=== PATIENT | male | born 1980 | race Hispanic/Latino ===

== ENCOUNTER 2019-06-30 09:26 | Inpatient (IN) | payer BC ==
[2019-06-30 10:01] LABS: #Basophils 0.1 thou/uL (0.0-0.2); #Eosinphils 0.1 thou/uL (0.0-0.7); #Lymphocytes 2.5 thou/uL (1.20-3.40); #Monocytes 0.9 thou/uL (0.11-0.59); #Neutrophils 7.3 thou/uL (1.40-6.50); %Basophils 0.6 % (0.0-1.0); %Eosinophils 1.2 % (0.0-10.0); %Lymphocytes 22.6 % (21.0-51.0); %Monocytes 8.3 % (0.0-10.0); %Neutrophils 67.3 % (42.0-75.0); Hemoglobin 14.6 g/dL (14.0-18.0); Mean Corpuscular HGB CONC 34.4 g/dL (32.0-36.0); Mean Corpuscular Hemoglobin 27.5 pg (27.0-31.0); Mean Corpuscular Volume 79.9 fL (78.0-98.0); Platelet Count 326 thou/uL (130-400); RBC Distribution Width 12.8 % (11.5-14.5); Red Blood Cell (RBC) Count 5.31 mill/uL (4.70-6.10); White Blood Cell (WBC) Count 10.8 thou/uL (4.8-10.8)
[2019-06-30 10:27] LABS: ALT (SGPT) 44 U/L (8-55); AST (SGOT) 31 U/L (5-34); Albumin 4.2 g/dL (3.5-5.0); Alkaline Phosphatase 170 U/L (40-150); Anion Gap 13 mmol/L (10-20); BUN (Urea Nitrogen) 14 mg/dL (8.9-20.6); Bilirubin, Total 0.7 mg/dL (0.2-1.2); CK (CPK) 42 U/L (30-200); Calc. Creatinine Clearance 0 mL/min (70-130); Calcium 9.9 mg/dL (7.8-10.44); Carbon Dioxide 24 mmol/L (22-29); Chloride 103 mmol/L (98-107); Estimated GFR-MDRD Greater than 90; Globulin 3.5 g/dL (2.4-3.5); Glucose 104 mg/dL (70-105); Lipase 90 U/L (8-78); Potassium 3.7 mmol/L (3.5-5.1); Protein, Total 7.7 g/dL (6.0-8.3); Sodium 136 mmol/L (136-145)
[2019-06-30] MEDS ORDERED: Ondansetron PF 4 MG/2 ML Vial ONE (10:37)
[2019-06-30] MEDS ORDERED: Furosemide 40 MG/4 ML VIAL ONE (11:09)
[2019-06-30] MEDS ORDERED: Metoprolol Tartrate 5 MG/5 ML VIAL ONE (11:09)
--- NOTE | 2019-06-30 11:10 | CT ---
EXAM: CTA of the chest HISTORY: Tachycardia for one week with cough COMPARISON: None TECHNIQUE: Multiple contiguous axial images were obtained a CTA of the chest with contrast per pulmon cathie embolism protocol. 3-D oblique MIP reformats and direct coronal reformats were performed. FINDINGS: HEART: Normal in size without focal cardiac abnormality. PULMONARY ARTERIES: Normal in caliber without filling defects to suggest pulmonary emboli. MEDIASTINUM: No hilar or mediastinal lymphadenopathy. LUNGS: No focal infiltrates or masses. PLEURAL SPACE: No pleural effusion or pneumothorax. CHEST WALL SOFT TISSUES: Unremarkable VISUALIZED OSSEOUS STRUCTURES: Unremarkable VISUALIZED SUBDIAPHRAGMATIC STRUCTURES: Unremarkable IMPRESSION: No evidence of pulmonary thromboembolism
[2019-06-30 11:34] LABS: Bilirubin Negative (Negative); Blood, Urine Negative (Negative); Clarity Clear (Clear); Glucose, Urine (Dipstick) Normal (Negative); Leukocyte Negative Leu/uL (Negative); Nitrite Negative (Negative); Protein, Urine (Dipstick) 20 mg/dL (Neg-Trace); Urobilinogen Normal mg/dL (Less than 2)
[2019-06-30] MEDS ORDERED: Dexamethasone 10 MG/ML VIAL ONE (12:13)
[2019-06-30] MEDS ORDERED: ISOVUE-370 76%-LOCM 1 ML ONE (13:01)
[2019-06-30 14:26] VITALS: BMI 17.8
[2019-06-30] MEDS ORDERED: Acetaminophen 500 MG TAB PO PRN (14:52)
[2019-06-30] MEDS ORDERED: Ondansetron PF 4 MG/2 ML Vial IVP PRN (14:52)
[2019-06-30] MEDS ORDERED: Ondansetron ODT 4 MG TAB PO PRN (14:52)
--- NOTE | 2019-06-30 17:14 | ULT ---
Exam: Thyroid ultrasound HISTORY: Thyroid storm. Goiter. COMPARISON: 03/21/2018 FINDINGS: Thyroid isthmus: 1.0 cm Right thyroid lobe 3.2 x 5.6 x 3.5 cm Left thyroid lobe 3.1 x 5.7 x 3.1 cm. Note, the entire thyroid gland cannot be measured due to the overall size and the thyroid gland is li melanie larger than measured. There is diffuse heterogeneity without solid, mixed or cystic lesions IMPRESSION: Markedly thyromegaly. Stable heterogeneous echotexture of the thyroid gland
[2019-06-30] MEDS: Propylthiouracil 50 MG TAB PO SCH ×2 (17:26→20:17)
[2019-06-30] MEDS: Ascorbic Acid 500 mg Chewable Tablet PO SCH (20:17)
[2019-06-30] MEDS: Famotidine 20 MG TAB PO SCH (20:17)
[2019-06-30] MEDS: POTASSIUM 99 MG PO SCH (20:20)
--- NOTE | 2019-06-30 21:54 | HP ---
PRIMARY CARE PROVIDER: Jannette Quesada DO CHIEF COMPLAINT: Palpitations and general weakness. HISTORY OF PRESENT ILLNESS: This is a 38-year-old male, who presents to [facility] Emergency Department complaining of persistent palpitations, general weakness, cough, and shortness of breath over the last 1 week. The patient states the symptoms have been progressive and noticeable, limiting his activity level at work. The patient denied any recent travel history, trauma, injury, documented fever, chills, or family members with similar symptoms. The patient admits to increased cough, congestion, and feeling like his heart is "beating fast." The patient admits to history of thyroid disorder, previously treated with an unknown type of medication, not currently taking. The patient admits that he has 2 sisters with thyroid disease, who are living in [place], where he is originally from. The patient denied any swelling of his lower extremities, fever, or chills. The patient does admit to large thyroid swelling in his neck, which has been worse in the past. The patient admits to intermittent difficulty swallowing liquids and foods due to the thyroid enlargement. The patient denies any previous surgical intervention or iodine therapy. In the emergency room, the patient underwent general evaluation with initial telemetry and EKG showing sinus tachycardia with heart rates in the 150s. The patient was treated for a thyroid storm with IV metoprolol intravenous normal saline x2 L in addition to Decadron 10 mg IV push x1 dose. The patient also received Zofran and Lasix. PAST MEDICAL HISTORY: Hyperthyroidism with goiter. PAST SURGICAL HISTORY: Reviewed and negative. CURRENT MEDICATIONS: 1. Vitamin C 500 mg b.i.d. 2. Minerva root 1 capsule p.o. b.i.d. 3. Dolomite 1 capsule b.i.d. 4. Vitamin B complex 1 tablet p.o. daily. 5. Potassium 99 mg p.o. t.i.d. 6. Zinc gluconate 30 mg p.o. daily. ALLERGIES: NO KNOWN DRUG ALLERGIES. FAMILY HISTORY: Two sisters with goiter and thyroid disorders. SOCIAL HISTORY: The patient resides in [place], [place]. No current alcohol, tobacco, or illicit drug use. Functional of all activities of daily living. REVIEW OF SYSTEMS: CONSTITUTIONAL: Positive 20 pounds weight loss in the last 2 months. Ability to conduct usual activities. SKIN: Negative for rash, itching. EYES: Negative for double vision, pain. ENT/MOUTH: Negative for nose bleeding, neck stiffness, pain, tenderness. CARDIOVASCULAR: Negative for palpitations, dyspnea on exertion, orthopnea. RESPIRATORY: Negative for shortness of breath, wheezing, cough, hemoptysis, fever or night sweats. GASTROINTESTINAL: Negative for poor appetite, abdominal pain, heartburn, nausea, vomiting, constipation, or diarrhea. GENITOURINARY: Negative for urgency, frequency, dysuria, nocturia. MUSCULOSKELETAL: Negative for pain, swelling. NEUROLOGIC/PSYCHIATRIC: Negative for anxiety, depression. ALLERGY/IMMUNOLOGIC: Negative for skin rash, bleeding tendency. The rest of the review of systems, otherwise negative except as stated per HPI. PHYSICAL EXAMINATION: VITAL SIGNS: On admission, blood pressure 130/75, pulse 151, respiratory rate 21, temperature 98.6 degrees Fahrenheit, and O2 saturation 97% on room air. GENERAL APPEARANCE: This is a 38-year-old male, alert and oriented x3, pleasant, in no acute distress. HEENT: Pupils are equal, round, and reactive to light and accommodation. Extraocular muscles are intact. No scleral icterus. No conjunctival injection. No exophthalmos noted. Nares patent. OP is clear. Teeth in good repair. NECK: Supple. No cervical adenopathy. Bilateral thyromegaly noted with enlarged bilobed thyroid. Bounding pulses noted in the carotid arteries bilaterally. No nuchal rigidity. CHEST: Lungs are clear to auscultation bilaterally. CARDIOVASCULAR: S1 and S2 with tachycardia. ABDOMEN: Flat, soft, nontender, and nondistended. Bowel sounds are positive in all 4 quadrants. There is no hepatosplenomegaly. No abdominal bruits. No rebound or guarding appreciated. EXTREMITIES: Warm and dry with fair turgor. No clubbing, cyanosis, or asymmetric edema appreciated. Pulses palpable distally at the dorsalis pedis, posterior tibial, and popliteal arteries bilaterally. Capillary refill less than 2 seconds. Generalized muscle atrophy noted. NEUROLOGIC: Cranial nerves 2 through 12 are grossly intact. No focal or lateralizing signs appreciated. PERTINENT LABORATORY AND X-RAY FINDINGS: Sodium 136, potassium 3.7, chloride 103, CO2 of 24, BUN 14, creatinine 0.64, estimated GFR of greater than 90, glucose 104, lactic acid level 1.4, calcium 9.9, alkaline phosphatase 170. Troponin I negative x1. BNP 104. Lipase 90. Free T4 of 5.0. TSH less than 0.0025. CBC within normal limits. CT angiogram of the chest dated 06/30/2019, showed no evidence for pulmonary embolus. EKG dated on 06/30/2019, by my interpretation shows a sinus tachycardia with heart rates in the 140s. Attenuated R-waves noted in the precordial leads. Left axis deviation. ASSESSMENT AND PLAN: 1. Hyperthyroidism/thyroid storm. The patient will be admitted to the telemetry unit. We will continue aggressive therapy to include propranolol 40 mg p.o. q.8 hours with additional propylthiouracil 200 mg p.o. q.4 hours. Decadron initiated in the emergency room. Continue suppression therapy with propylthiouracil with plans to transition to methimazole prior to discharge. The patient likely will need chemical versus mechanical thyroidectomy in the near future. 2. Sinus tachycardia. Continue beta-jean-claude therapy as outlined previously. Titrate propranolol for clinical response. 3. Anorexia/weight loss. Secondarily to hyperthyroidism/thyroid storm. We will continue to treat as outlined in #1. 4. Goiter. Suspected Graves disease. Likely autoimmune-mediated presentation. Continue treatment as outlined in #1. 5. Prophylaxis. SCDs while in bed. Pepcid 20 mg p.o. b.i.d. CODE STATUS: Full. Surrogate medical decision maker is the patient's spouse. Job ID: [id number]
[2019-06-30] MEDS: Propranolol 40 MG TAB PO SCH (22:00)
[2019-07-01] MEDS: Propylthiouracil 50 MG TAB PO SCH ×6 (00:36→21:05)
[2019-07-01 05:27] LABS: Band 2 % (5-11); Hemoglobin 13.5 g/dL (14.0-18.0); Lymphocytes 24 % (21-51); MDiff Complete? YES; Mean Corpuscular HGB CONC 34.4 g/dL (32.0-36.0); Mean Corpuscular Hemoglobin 27.7 pg (27.0-31.0); Mean Corpuscular Volume 80.4 fL (78.0-98.0); Mean Platelet Volume 8.1 fL (7.4-10.4); Monocytes 4 % (0-10); Neutrophil 70 % (42-75); Platelet Count 278 thou/uL (130-400); Platelet Morphology Comment Appears Adequate; RBC Distribution Width 12.7 % (11.5-14.5); Red Blood Cell (RBC) Count 4.88 mill/uL (4.70-6.10); White Blood Cell (WBC) Count 5.6 thou/uL (4.8-10.8)
[2019-07-01] MEDS: Propranolol 40 MG TAB PO SCH ×3 (05:36→21:05)
[2019-07-01 05:43] LABS: ALT (SGPT) 38 U/L (8-55); AST (SGOT) 22 U/L (5-34); Albumin 3.7 g/dL (3.5-5.0); Alkaline Phosphatase 144 U/L (40-150); Anion Gap 12 mmol/L (10-20); BUN (Urea Nitrogen) 18 mg/dL (8.9-20.6); Bilirubin, Total 0.6 mg/dL (0.2-1.2); Calc. Creatinine Clearance 117 mL/min (70-130); Calcium 9.4 mg/dL (7.8-10.44); Carbon Dioxide 23 mmol/L (22-29); Chloride 105 mmol/L (98-107); Estimated GFR-MDRD Greater than 90; Globulin 3.3 g/dL (2.4-3.5); Glucose 140 mg/dL (70-105); Potassium 4.3 mmol/L (3.5-5.1); Sodium 136 mmol/L (136-145)
[2019-07-01] MEDS: ZINC GLUCONATE 30 MG PO SCH (09:17)
[2019-07-01] MEDS: Ascorbic Acid 500 mg Chewable Tablet PO SCH ×2 (09:17→21:06)
[2019-07-01] MEDS: POTASSIUM 99 MG PO SCH ×3 (09:17→21:06)
[2019-07-01] MEDS: Famotidine 20 MG TAB PO SCH ×2 (09:17→21:06)
[2019-07-01] MEDS: Stress 600 With Zinc 1 TAB PO SCH (09:36)
--- NOTE | 2019-07-01 09:45 | PDOC.HOSPP ---
- Subjective Encounter Date: 07/01/19 Encounter Time: 09:40 Subjective: f/u for thyroid storm/hyperthyroidism on PTU and Propranolol. Feels better overall. Some cough but non-productive. - Objective Vital Signs & Weight: Vital Signs (12 hours) Temp Pulse Resp BP Pulse Ox 07/01/19 08:00 97.8 F 93 16 117/57 L 98 07/01/19 04:00 97.7 F 114 H 18 112/54 L 97 Weight Weight 104 lb I&O: 06/30/19 07/01/19 07/02/19 06:59 06:59 06:59 Intake Total 617 Output Total 525 Balance 92 Result Diagrams: 07/01/19 04:48 07/01/19 04:48 Additional Labs: Microbiology 06/30/19 10:03 Venous blood - Right Arm Blood Culture - Preliminary Specimen has been received and culture in progress. No Growth to date. 06/30/19 09:45 Venous blood - Left Arm Blood Culture - Preliminary Specimen has been received and culture in progress. No Growth to date. Laboratory Tests 06/30/19 06/30/19 06/30/19 09:45 09:45 09:45 B-Natriuretic Peptide 103.7 H Free T4 Greater than 5.00 H TSH 3rd Generation Less than 0.0025 L Radiology Reviewed by me: Yes (Thyroid sono - heterogenous thyroid gland, marked thyromegaly) EKG Reviewed by me: Yes (Tele - Sinus in the 90's) Hospitalist ROS - Medication Medications: Active Medications Generic Name Dose Route Start Last Admin Trade Name Freq PRN Reason Stop Dose Admin Ascorbic Acid 500 mg 06/30/19 21:00 07/01/19 09:17 Vitamin C PO 500 mg BID BANDAR Administration Famotidine 20 mg 06/30/19 21:00 07/01/19 09:17 Pepcid PO 20 mg BID BANDAR Administration Multivitamins/Zinc 1 tab 07/01/19 09:00 07/01/19 09:36 Stress 600 With Zinc PO 1 tab DAILY BANDAR Administration Potassium 99 Mg 1 each 06/30/19 21:00 07/01/19 09:17 PO 1 each TID BANDAR Administration Zinc Gluconate [Zinc 1 each 07/01/19 09:00 07/01/19 09:17 ] 30 Mg PO 1 each DAILY BANDAR Administration Propranolol HCl 40 mg 06/30/19 22:00 07/01/19 05:36 Inderal PO 40 mg Q8HR BANDAR Administration Propylthiouracil 200 mg 06/30/19 17:00 07/01/19 09:17 Propylthiouracil PO 200 mg Q4HR BANDAR Administration - Exam General Appearance: NAD, awake alert Eye: PERRL, anicteric sclera ENT: normocephalic atraumatic, no oropharyngeal lesions ENT - other findings: marked thyromegaly Neck: supple Heart: RRR, no murmur, no gallops, no rubs Respiratory: CTAB, no wheezes, no rales, no ronchi, normal chest expansion Gastrointestinal: soft, non-tender, non-distended, normal bowel sounds, no palpable masses Extremities: no cyanosis, no clubbing Skin: normal turgor, no lesions Neurological: cranial nerve grossly intact, no focal deficits, no new deficit Musculoskeletal: normal tone, normal strength Psychiatric: normal affect, A&O x 3 Hosp A/P (1) Thyroid storm Code(s): E05.91 - THYROTOXICOSIS, UNSPECIFIED WITH THYROTOXIC CRISIS OR STORM Status: Acute Plan: Improved with PTU and Propranolol, plan for transition to Methimazole prior to d /c (2) Hyperthyroidism Code(s): E05.90 - THYROTOXICOSIS, UNSP WITHOUT THYROTOXIC CRISIS OR STORM Status: Acute Plan: See above, repeat FT4 level in am to monitor trend given PTU therapy (3) Sinus tachycardia Code(s): R00.0 - TACHYCARDIA, UNSPECIFIED Status: Acute Plan: Continue Propranolol 40mg po q8h (4) Goiter Code(s): E04.9 - NONTOXIC GOITER, UNSPECIFIED Status: Chronic Plan: Heterogenous goiter, will refer to ENT for consideration of thyroidectomy - Plan plan discussed w/ family, out of bed/ambulate, DVT proph w/SCDs Continue PTU 200mg po q4h Continue Propranolol 40mg po q8h Robitussin DM 10ml po q6h prn OOB/ambulate AM lab: FT4
[2019-07-01] MEDS ORDERED: guaiFENesin/Dextromethorphan 10 ML UDCUP PO PRN (10:10)
[2019-07-01] MEDS ORDERED: Guaifenesin DM 100-10/5 ML UDCUP PO PRN (11:30)
[2019-07-02] MEDS: Propylthiouracil 50 MG TAB PO SCH ×4 (00:18→13:08)
[2019-07-02] MEDS: Propranolol 40 MG TAB PO SCH ×2 (05:23→13:07)
[2019-07-02] MEDS: Ascorbic Acid 500 mg Chewable Tablet PO SCH (09:27)
[2019-07-02] MEDS: Famotidine 20 MG TAB PO SCH (09:27)
[2019-07-02] MEDS: Stress 600 With Zinc 1 TAB PO SCH (09:29)
[2019-07-02] MEDS: POTASSIUM 99 MG PO SCH (09:32)
[2019-07-02] MEDS: ZINC GLUCONATE 30 MG PO SCH (09:32)
[2019-07-02 14:13] VITALS: BP 110/55; TEMP 97.8
--- NOTE | 2019-07-02 18:11 | DIS ---
DATE OF ADMISSION: 06/30/2019 DATE OF DISCHARGE: 07/02/2019 DISCHARGE DISPOSITION: Home. FOLLOWUP: Follow up with primary care physician, Dr. Brown in 1 week. Follow up with math interventionist, Dr. Leonora Bean on 09 July 2019, at 2:30 p.m. The patient was seen and examined on the day of discharge. Denies any new complaints. No chest pain, shortness of breath, palpitations reported. Vital signs on the day of discharge showed temperature 97.8, pulse of 84, respirations of 17, blood pressure of 110/55 with O2 saturation 98% on room air. DISCHARGE MEDICATION: 1. Methimazole 5 mg b.i.d. 2. Propranolol 20 mg 3 times daily. 3. Vitamin C 500 mg b.i.d. 4. Vitamin B complex daily. INPATIENT CONSULTANTS: None. DIAGNOSTIC TESTS: CT angiogram of the chest was negative for pulmonary embolism. Thyroid ultrasound showed markedly thyromegaly. Thyroid isthmus was 1 cm, right thyroid lobe was 3.2 x 5.6 x 3.5 cm. Left thyroid lobe was 3.1 x 5.7 x 3.1 cm. The entire thyroid gland was not measured due to overall size and thyroid gland is likely larger than measured. There was diffuse heterogenicity without solid, mixed or cystic lesions. BRIEF HOSPITAL COURSE: The patient is a 38-year-old male with hyperthyroidism in the past, currently not taking any medications presented to the hospital with palpitations. His workup was consistent with thyrotoxicosis. His TSH was less than 0.0025 with free T4 of greater than five. He was started on propylthiouracil 200 mg every 4 hourly by the admitting physician (Dr. Van Simpson). He was also placed on Inderal 40 mg q.8 hourly. On the day of discharge, the patient has been started on methimazole. Due to blood pressure on the lower range, propranolol will be reduced to 20 mg every 8 hourly. The patient was advised to monitor his blood pressure on a daily basis. He appears stable for discharge. FINAL DIAGNOSES: 1. Thyrotoxicosis. 2. Generalized weakness with palpitations secondary to thyrotoxicosis. 3. Sinus tachycardia. 4. Thyromegaly. 5. Medication noncompliance. 6. Moderate protein-calorie malnutrition due to thyrotoxicosis. The patient's BMI is 17.9. Total time coordinating the discharge of this patient was 33 minutes. He was extensively counseled on the side effects of methimazole including life-threatening complications from agranulocytosis. He was advised to contact the PCP if he develops any fevers, sore throat, skin lesions or generalized malaise. He was extensively counseled to be compliant with medications. Job ID: [id number]
[2019-07-02] MEDS ORDERED: Methimazole 5 MG TAB PO SCH (21:00)
== END 2019-07-02 14:10 | disposition home or self-care (01) | DRG 644 ==
LOC: ERS 09:26 → 2NO 14:16
PROVIDERS: ADMIT Family Medicine; ATTEND Family Medicine
DX: E05.01 Thyrotoxicosis with diffuse goiter with thyrotoxic crisis or storm (principal); E44.0 Moderate protein-calorie malnutrition; Z68.1 Body mass index [BMI] 19.9 or less, adult; Z91.14 Patient's other noncompliance with medication regimen; Z79.899 Other long term (current) drug therapy
CPT/HCPCS: 36415; 71275; 76536; 80053; 81003; 82550; 83605; 83690; 83880; 84439; 84443; 84484; 85007; 85025; 85027; 87040; 93005; 96361; 96374; 96375; J1100; J1940; J2405; Q9966

== ENCOUNTER 2020-04-03 18:47 | Emergency (ER) | payer BC, OTHER | END 2020-04-03 19:08 | disposition home or self-care (01) | LOC: ERS 18:47 | DX: Z20.828 Contact with and (suspected) exposure to other viral communicable diseases (principal); E05.90 Thyrotoxicosis, unspecified without thyrotoxic crisis or storm | CPT/HCPCS: 87635; 99283; U0003 ==

== ENCOUNTER 2022-01-12 10:27 | Emergency (ER) | payer BC, SELFPAY ==
[2022-01-12] MEDS ORDERED: Ibuprofen 200 MG TAB ONE (10:33)
[2022-01-12] MEDS ORDERED: Acetaminophen 500 MG TAB ONE (10:33)
[2022-01-12 16:03] LABS: SARS-CoV-2 PCR by NAA DETECTED (NotDetected)
== END 2022-01-12 11:57 | disposition home or self-care (01) ==
LOC: ERS 10:27
DX: U07.1 COVID-19 (principal); J11.1 Influenza due to unidentified influenza virus with other respiratory manifestations; E05.90 Thyrotoxicosis, unspecified without thyrotoxic crisis or storm; Z79.890 Hormone replacement therapy
CPT/HCPCS: 87804; 99283; U0003; U0005